=== PATIENT | female | born 1960 | race Caucasian/White ===

== ENCOUNTER → 2021-02-02 | Outpatient (CLI) | payer BC, OTHER | LOC: COL.RAD 11:53 | DX: I63.81 Other cerebral infarction due to occlusion or stenosis of small artery (principal); M54.81 Occipital neuralgia | CPT/HCPCS: A9585 ==

== ENCOUNTER → 2021-02-22 | Outpatient (CLI) | payer BC, OTHER | LOC: COL.RAD 10:30 | DX: M48.02 Spinal stenosis, cervical region (principal); M50.322 Other cervical disc degeneration at C5-C6 level; R22.1 Localized swelling, mass and lump, neck ==

== ENCOUNTER → 2021-02-22 | Outpatient (CLI) | payer BC, OTHER | LOC: COL.RAD 02-17 14:15 | DX: Z01.89 Encounter for other specified special examinations (principal) | CPT/HCPCS: A9585 ==

== ENCOUNTER → 2021-03-05 | Outpatient (CLI) | payer BC, OTHER | LOC: MHCPAIN 13:43 | DX: M54.2 Cervicalgia (principal); M54.81 Occipital neuralgia ==

== ENCOUNTER → 2021-04-06 | Outpatient (CLI) | payer BC, OTHER | LOC: MHCPAIN 14:00 | DX: M54.81 Occipital neuralgia (principal); M54.2 Cervicalgia | CPT/HCPCS: J1040; J1100 ==

== ENCOUNTER → 2021-04-19 | Outpatient (CLI) | payer BC, OTHER | LOC: MHCPAIN 15:36 | DX: M54.2 Cervicalgia (principal); R51.9 Headache, unspecified ==

== ENCOUNTER → 2021-05-11 | Outpatient (CLI) | payer BC, OTHER | LOC: MHCPAIN 10:53 | DX: M54.2 Cervicalgia (principal); M54.81 Occipital neuralgia | CPT/HCPCS: J1040 ==

== ENCOUNTER → 2021-06-22 | Outpatient (CLI) | payer BC, OTHER | LOC: MHCPAIN 13:21 | DX: M54.81 Occipital neuralgia (principal); M54.2 Cervicalgia; M79.18 Myalgia, other site | CPT/HCPCS: G0463 ==

== ENCOUNTER → 2021-07-29 | Outpatient (CLI) | payer BC, OTHER | LOC: MHCPAIN 07:50 | DX: M47.812 Spondylosis without myelopathy or radiculopathy, cervical region (principal); M54.2 Cervicalgia; R51.9 Headache, unspecified | CPT/HCPCS: J0461 ==